=== PATIENT | male | born 1985 | race Caucasian/White ===

== ENCOUNTER → 2016-08-24 | Day surgery (SDC) | payer BC ==
[2016-08-23 12:00] VITALS: Ht 190.5 cm; Wt 151.4 kg
[~2016-08-24] VITALS: Ht 190.5 cm; Wt 151.4 kg
[~2016-08-24] MED LIST: AMIT25TA9 PO; AMITRIPTYLINE PO; CLR10 PO; CYCL10TA6 PO; IOPAMIDOL INJ 61% 15 ML VIAL ONE; LIDOCAINE HCL 1% MPF 5 ML VIAL ONE; NAPR-1169 PO; NAPR250T2 PO; SODIUM CHLORIDE 0.9% INJ 10 ML VIAL ONE
--- NOTE | 2016-08-24 13:37 | History & Physical Bridge - [place] ---
H&P Re-Evaluation Bridge Note: I have examined the patient, reviewed the History & Physical and in the interval since the performance of the History & Physical I have noted the following changes of clinical significance: No changes noted
[2016-08-24 14:00] VITALS: BP 164/90; PULSE 90; TEMP 37.1; O2SAT 95
--- NOTE | 2016-08-24 14:09 | Discharge Instructions ---
Discharge Instructions Visit Reason for Visit: Sacral Radiculopathy Discharge Discharge Diagnosis / Problem: left leg pain Discharge Goals Goal(s): Decrease discomfort, Improve function Activity Recommendations Activity Limitations: resume your previous activity Anesthesia . Post Anesthesia Instructions: If you have had General Anesthesia or IV Sedation: * Do not drive today. * Resume driving when surgeon permits. * Do not make important decisions or sign legal documents today. * Call surgeon for: 1. Temperature elevations greater than 101 degrees F. 2. Uncontrollable pain. 3. Excessive bleeding. 4. Persistent nausea and vomiting. 5. Medication intolerance (nausea, vomiting or rash). * For nausea and vomiting use only clear liquids such as: tea, soda, bouillon until nausea subsides, then gradually increase diet as tolerated. * If you have any concerns or questions, call your surgeon's office. If physician is unavailable and it is an emergency, call 911 or go to the nearest emergency room. . Diet Recommendations Recommended Home Diet: resume previous diet Procedures Procedures Performed: Lumbar Epidural Steroid Injection Pending Studies Studies pending at discharge: no Medical Emergencies . Who to Call and When: Medical Emergencies: If at any time you feel your situation is an emergency, please call 911 immediately. . Non-Emergent Contact Non-Emergency issues call your: Specialist . . "Provider Documentation" section prepared by Chang Duffy.
--- NOTE | 2016-08-24 14:48 | OPERATIVE REPORT ---
DATE OF OPERATION: 08/24/2016 PREOPERATIVE DIAGNOSIS: L5-S1 annular tear with protrusion with a left S1 radiculopathy. POSTOPERATIVE DIAGNOSIS: Same. PROCEDURE: Left paramedian L5-S1 intralaminar epidural steroid injection under fluoroscopic guidance. INDICATIONS FOR PROCEDURE: The patient is a 30-year-old white male who presents today for an epidural injection. He has not gotten improvement with conservative treatment for his radicular pain and it is impacting his function, presents today for relief. PHYSICAL EXAMINATION: GENERAL: Pleasant male, seated comfortably, in no apparent distress. MUSCULOSKELETAL: Lumbar paraspinal muscles were palpated and noted to be nontender. He had some limitations with forward flexion as it reproduced pain. He had no issues with extension. Negative seated straight leg raises. Normal lower extremity strength. CONSENT: Verbal and written consent was obtained from the patient. Risks and benefits were reviewed. Risks include but are not limited to epidural abscess, epidural hematoma, allergic reaction, dural puncture. The patient wishes to proceed. DESCRIPTION OF PROCEDURE: The patient was taken back to the special procedures room of the [facility] where he was maintained in a prone position. Backside was cleansed with Betadine x3 and a dry sterile dressing was applied. Fluoroscope was used to identify the L5-S1 intralaminar space. Overlying skin on the left side was anesthetized with 4 mL of lidocaine 1% with a 25-gauge 1.5-inch needle. A 22-gauge 4.25-inch Tuohy needle was then directed down towards the intralaminar space. It was advanced under lateral fluoroscopic guidance. Loss of resistance was noted at a depth of 9 cm. Isovue-300 contrast 1 mL was injected in after negative aspiration and demonstrated an epidural uptake pattern on both AP and lateral views. He then underwent injection after negative aspiration of 40 mg of Depo-Medrol and 4 mL of preservative free sodium chloride. Injection was well tolerated and reproduced a familiar transient radicular sensation down the left leg. DISPOSITION: 1. The patient is taken out into the discharge recovery area where he will be discharged home once discharge criteria have been met. 2. Follow up in the [facility] office in 2-4 weeks. I attest to the content of the Intraoperative Record and any orders documented therein. Any exceptio ns are noted below.
== END | disposition home or self-care (01) ==
LOC: X.SURG 12:43
PROVIDERS: ATTEND Physical Medicine & Rehabilitation
DX: M54.16 Radiculopathy, lumbar region (principal); M51.87 Other intervertebral disc disorders, lumbosacral region

== ENCOUNTER → 2016-11-24 | Day surgery (SDC) | payer BC ==
[2016-10-06 10:38] VITALS: BMI 41.0
[2016-10-28 10:34] VITALS: Ht 190.5 cm; Wt 149.1 kg
[~2016-11-24] VITALS: Ht 190.5 cm; Wt 149.1 kg
[~2016-11-24] MED LIST changes: -AMITRIPTYLINE PO; -NAPR250T2 PO
[2016-11-24 15:16] VITALS: TEMP 36.7
--- NOTE | 2016-11-24 15:22 | Discharge Instructions ---
Discharge Instructions Date of Service Nov 24, 2016. Visit Reason for Visit: Lumbar Radiculopathy Discharge Discharge Diagnosis / Problem: left lg pain Discharge Goals Goal(s): Decrease discomfort, Improve function Activity Recommendations Activity Limitations: resume your previous activity Anesthesia . Post Anesthesia Instructions: If you have had General Anesthesia or IV Sedation: * Do not drive today. * Resume driving when surgeon permits. * Do not make important decisions or sign legal documents today. * Call surgeon for: 1. Temperature elevations greater than 101 degrees F. 2. Uncontrollable pain. 3. Excessive bleeding. 4. Persistent nausea and vomiting. 5. Medication intolerance (nausea, vomiting or rash). * For nausea and vomiting use only clear liquids such as: tea, soda, bouillon until nausea subsides, then gradually increase diet as tolerated. * If you have any concerns or questions, call your surgeon's office. If physician is unavailable and it is an emergency, call 911 or go to the nearest emergency room. . Diet Recommendations Recommended Home Diet: resume previous diet Procedures Procedures Performed: Lumbar Epidural Steroid Injection Pending Studies Studies pending at discharge: no Medical Emergencies . Who to Call and When: Medical Emergencies: If at any time you feel your situation is an emergency, please call 911 immediately. . Non-Emergent Contact Non-Emergency issues call your: Specialist . . "Provider Documentation" section prepared by Chang Duffy. .
[2016-11-24 15:29] VITALS: BP 143/81; PULSE 101; O2SAT 97
--- NOTE | 2016-11-24 16:03 | OPERATIVE REPORT ---
DATE OF OPERATION: 11/24/2016 PREOPERATIVE DIAGNOSIS: Annular tear L5-S1 with a left S1 radiculopathy. POSTOPERATIVE DIAGNOSIS: Same. PROCEDURE: Left paramedian L5-S1 intralaminar epidural steroid injection under fluoroscopic guidance. INDICATIONS: The patient is a 31-year-old white male who has responded to an epidural in the recent past with 40% improvement. He presents today to stack the effects to try to provide him with additional relief of radicular pain down the left leg. PHYSICAL EXAMINATION: Pleasant male seated comfortably. He has no issues with forward flexion or extension. He has normal lower extremity strength. Negative seated straight leg raises. CONSENT: Verbal and written consent was obtained from the patient. Risks and benefits were reviewed. Risks include, but are not limited to epidural abscess, epidural hematoma, allergic reaction, and dural puncture. The patient wishes to proceed. DESCRIPTION OF PROCEDURE: The patient was taken back to the special procedures room of the [facility], where he was maintained in a prone position. Backside was cleansed with Betadine x3 and a dry sterile dressing was applied. Fluoroscope was used to identify the L5-S1 intralaminar space. Overlying skin on the left side was anesthetized with 4 mL of lidocaine 1% with a 25-gauge 1-1/2-inch needle. A 22-gauge 4-1/4 inch Tuohy needle was then directed down towards the intralaminar space. It was advanced under lateral fluoroscopic guidance and loss of resistance was noted at a depth of 9.5 cm. Isovue-300 contrast 1 mL was injected in, which demonstrated an epidural uptake pattern. This was confirmed with both AP and lateral views. He then underwent injection after negative aspiration of 40 mg of Depo-Medrol and 4 mL of preservative free sodium chloride. Injection reproduced a very familiar radicular sensation, which was transient down the left leg. DISPOSITION: 1. The patient is taken out into the discharge recovery area, where he will be discharged home once discharge criteria have been met. 2. Follow up in the [facility] office in 2-4 weeks. I attest to the content of the Intraoperative Record and any orders documented therein. Any exceptio ns are noted below.
== END | disposition home or self-care (01) ==
LOC: X.SURG 14:04
PROVIDERS: ATTEND Physical Medicine & Rehabilitation
DX: M54.17 Radiculopathy, lumbosacral region (principal)

== ENCOUNTER 2017-11-23 17:01 | Emergency (ER) | payer BC, OTHER ==
[~2017-11-23] VITALS: Ht 190.5 cm; Wt 148.8 kg
[~2017-11-23 17:01] MED LIST changes: -IOPAMIDOL INJ 61% 15 ML VIAL ONE; -LIDOCAINE HCL 1% MPF 5 ML VIAL ONE; -SODIUM CHLORIDE 0.9% INJ 10 ML VIAL ONE
[2017-11-23 17:06] VITALS: BP 166/110; PULSE 84; TEMP 36.6; O2SAT 97; Ht 190.5 cm; Wt 148.8 kg
[2017-11-23] MEDS ORDERED: HYDR-5688 PO (17:50)
--- NOTE | 2017-11-24 01:04 | EMERGENCY ROOM VISIT NOTE ---
ED Visit Note First contact with patient: 17:13 CHIEF COMPLAINT: Toothache. HISTORY OF PRESENT ILLNESS: Mr. Hunt is a 32-year-old white male who ambulates into the ED complaining of left maxillary dental pain. He reports approximately 1 month ago he broke his left maxillary first molar; tooth #14. He reports he immediately had pain that lasted for a few hours while chewing a hard piece of food and then self resolved. He reports he has been mostly pain-free and because he had no dental insurance he has not followed up with a dentist. A progressive dental pain for a few days in the area of his broken tooth. Shortly his pain was controlled with Orajel, acetaminophen and ibuprofen. The pain is now steady and severe and radiates to the jaw. Currently he describes his pain as sharp and stabbing. He rates his discomfort 7/10. His pain worsens with palpation, and chewing. He has found some relief with sipping cold water. He denies fevers, chills, facial swelling, sore throat, upper respiratory tract symptoms, decreased appetite, nausea/vomiting. REVIEW OF SYSTEMS: As noted above in History of Present Illness. 8 body systems were reviewed with this patient and found to be negative unless noted above otherwise. PMH: Pneumonia, status post hernia repair.. CURRENT MEDICATION: Flexeril, Elavil, Naprosyn, Claritin. ALLERGIES TO MEDICATION: Patient denies. SOCIAL HISTORY: Patient is currently employed; he lives with his family and feels safe in his home environment; he denies tobacco use and admits to alcohol use. PHYSICAL EXAM: Vital Signs: Date Time Temp Pulse Resp B/P (MAP) Pulse Ox O2 Delivery O2 Flow Rate FiO2 11/23/17 17:06 36.6 84 20 166/110 97 Room Air General: 32 year-old white male in mild distress due to pain, nontoxic appearing , afebrile and hemodynamically stable. Neurological: Awake, alert and oriented to person, place and time. Answering questions appropriately and following commands. Normal gait. Good hand eye coordination. Skin: Warm, dry and pink. Face: No swelling or erythema. HEENT: Atraumatic and normocephalic. Oral cavity is moist and pink. Airway is patent. Tooth #14 shows it has been fractured and the anterior quarter of the tooth is completely missing. There is mild erythema over the local gingiva but no swelling or palpable abscess. No cervical or submandibular lymphadenopathy. ED COURSE: Patient is assessed as noted above. Patient's medication list was reviewed Patient is educated about his findings and instructed on his treatment plan; he verbalizes understanding and agreement with this plan. CLINIC IMPRESSION: Dental pain. DISPOSITION: Patient discharged home in stable condition; prior to departure he was reassessed and subjectively reported he was feeling the same. PLAN: Comfort measures were discussed including a sliding pain scale of ibuprofen, acetaminophen and [place]. His name was checked on the state database and no red flags were noted. He was given appropriate narcotic precautions. Patient was encouraged to follow-up with dentistry as soon as possible for definitive care and treatment. Patient was educated in signs of dental infections and encouraged to return to the ED for any signs of infection, uncontrolled pain or any new/concerning symptoms.
== END 2017-11-23 17:58 | disposition home or self-care (01) ==
LOC: C.EDB 17:03 → C.EDD 17:58
DX: K08.89 Other specified disorders of teeth and supporting structures (principal); S02.5XXA Fracture of tooth (traumatic), initial encounter for closed fracture; X58.XXXA Exposure to other specified factors, initial encounter; Z87.01 Personal history of pneumonia (recurrent); Z98.890 Other specified postprocedural states